=== PATIENT | female | born 1985 | race African-American/Black ===

== ENCOUNTER 2023-02-18 07:22 | Emergency (ER) | payer MEDICAID ==
[~2023-02-18] VITALS: Ht 170.2 cm; Wt 95.3 kg
[2023-02-18 07:30] VITALS: O2SAT 98
[2023-02-18] MEDS ORDERED: HYDROCODONE/ACETAMINOPHEN 5/325MG TABLET PO ONE (08:00)
[2023-02-18] MEDS ORDERED: SILVER SULFADIAZINE 1% CREAM 50GM TOP SCH (08:00)
[2023-02-18] MEDS ORDERED: TETANUS, DIPHTHERIA, PERTUSSIS VAC/PF 0.5ML (>10YR OLD) IM ONE (08:00)
[2023-02-18] MEDS ORDERED: SILV20CR13 TP (08:28)
[2023-02-18 09:01] VITALS: BP 137/86; PULSE 91; RESP 16; TEMP 98
== END 2023-02-18 09:02 | disposition home or self-care (01) ==
LOC: ER 07:22
DX: T25.221A Burn of second degree of right foot, initial encounter (principal); X12.XXXA Contact with other hot fluids, initial encounter; Y93.89 Activity, other specified; Y92.89 Other specified places as the place of occurrence of the external cause; Y99.8 Other external cause status
CPT/HCPCS: 10060; 99283; Z7610 ×2